=== PATIENT | female | born 1995 | race Caucasian/White ===

== ENCOUNTER 2019-08-19 15:13 | Emergency (ER) | payer SELFPAY ==
[2019-08-19 15:21] VITALS: BP 124/76; PULSE 69; RESP 18; TEMP 36.8; O2SAT 100
--- NOTE | 2019-08-19 15:38 | W.ED.GENAD ---
Discharge Plan Disposition Patient Disposition: HOME Condition: Stable Discharge Details Chief Complaint: GenMedical Clinical Impression: Jaundice Primary Care Provider: None,None ED Provider: Domenic Dunlap Home Meds and New Rx's Prescriptions: No Action No Known Home Meds RF: 0 Discharge Instructions Additional Instructions: You have elevated bilirbuin in your blood that has caused the yellowing of your skin. This is likely due primarily due to excessive alcohol use I have placed you on a follow up list to see a primary care provider if you develop high fevers, severe abdominal pain or persistent vomit, or feel more ill return to the emergency department Medical Decision Making 24 yo female comes in with years of yellow color of her conjunctiva that she feels has worsened the past few weeks and she is here today at request of her and other family per patient. Denies fevers, chills, abdominal pain. Used to use marijuana but hasn't in over a year and denies other drug use. Does drink a bottle of wine and over 5 shots of liquor most days per patient, none today. She does have some mild jaundice of her sclera bilaterally with no periorbital swelling and 20/20 vision, perrl, no discharge. Suspect has jaundice from her alcohol use, will check lfts and coag and send hepatitis panel. Denies any abdominal pain and has no tenderness now so do not feel emergent imaging indicated. labs show primarily unconjugated hyperbili and no evidence of hemolysis on labs and u/s shows no acute pathology. Could heamlatha Gary with some chronic liver damage from excessive alcohol use, no evidence of acute liver failure. will set her up with pcp and return precautions given Differential Diagnosis Differential Diagnosis: alcoholic hepatitis, jaundice, Imaging Data Radiologic Study: Attestation: I personally reviewed and interpreted this imaging study as follows: Imaging: X-Ray Radiologist's impression: IMPRESSION: No evidence of acute process. Lab Data Lab results reviewed: Yes I reviewed the patient's lab results. HPI General Mode of arrival: ambulatory. Date/Time Provider Initiated Documentation: 08/19/19 15:16. Limitations to Documentation: no limitations. Information obtained by: patient. History of Present Illness 24 year old F presents to the emergency department with the chief complaint of yellow conjunctiva, described as mild, and is localized to the eyes. Patient started experiencing this year(s) (3) No relieving factors improve symptom(s), No exacerbating factors reported . Patient notes no other symptoms.. Related Data Home Medications Medication Instructions Recorded Confirmed Unknown [No Known Home Meds] 05/01/13 08/19/19 Allergies Allergy/AdvReac Type Severity Reaction Status Date / Time cider vinegar AdvReac Other (See Unverified 08/19/19 15:35 Comment) orange AdvReac Other (See Unverified 08/19/19 15:35 Comment) General Stated Complaint: GenMedical MICHAEL: 3 Review of Systems Review of Systems ROS Unobtainable: All systems reviewed & are unremarkable except as noted in HPI and below Constitutional Constitutional: Denies chills, Denies fever(s) and Denies weakness ENT Ears, Nose, Mouth, and Throat: Denies change in voice Cardiovascular Cardiovascular: Denies chest pain and Denies dyspnea Respiratory Respiratory: Denies cough and Denies dyspnea Gastrointestinal Gastrointestinal: Denies abdominal pain, Denies nausea and Denies vomiting Musculoskeletal Musculoskeletal: Denies joint swelling Neurologic Neurologic: Denies weakness [facility] Social History Smoking/Tobacco Use Status: Never Alcohol Intake: current Alcohol Intake frequency: a few times a month Alcohol type: wine and hard liquor Drug use: Current Sobriety Exam Const General: no acute distress Orientation: alert HENMT Head: normal to inspection Ears: external ears normal General nose exam: external nose normal Mouth: moist mucous membranes Eyes Periorbital: periorbital findings normal Neck Neck: normal visual inspection Resp Effort & Inspection: normal respiratory effort and able to speak in complete sentences Cardio Rate: regular rate Skin General skin exam: no rashes or lesions noted Neuro General: alert and oriented x3 Extrem General: normal to inspection Psych Mental Status: mental status grossly normal Course Vital Signs Vital signs: Vital Signs Temperature 36.8 C 08/19/19 15:21 Pulse 69 08/19/19 15:21 Respiratory Rate 18 08/19/19 15:21 Blood Pressure 124/76 08/19/19 15:21 Pulse Oximetry 100 08/19/19 15:21 Temperature 36.8 C 08/19/19 15:21 Temperature Source Skin 08/19/19 15:21 Pulse 69 08/19/19 15:21 Respiratory Rate 18 08/19/19 15:21 Blood Pressure 124/76 08/19/19 15:21 Pulse Oximetry 100 10/07/19 15:21 Oxygen Delivery Method Room Air 08/19/19 15:21 Oxygen Flow Rate 0 08/19/19 15:21 Pain Level 0 08/19/19 15:21 Comment 08/19/19 15:21
--- NOTE | 2019-08-19 15:52 | DI.US_ITS ---
EXAM: US ABDOMEN CLINICAL HISTORY: jaundice. TECHNIQUE: Ultrasound performed using standard protocol. COMPARISON: No exams were available for comparison FINDINGS: Ultrasound was performed according to the usual protocol. Visualized liver parenchyma is normal in a ppearance. No evidence of cholelithiasis. No biliary dilatation. No gallbladder wall thickening. Negative sonographic Doshi's sign. Pancreas not ideally visualized but grossly unremarkable. Splee n unremarkable. Kidneys appear normal. IMPRESSION: No evidence of acute process.
[2019-08-19 16:14] LABS: Abs Immature Grans 0.03 k/cumm (0.0-0.09); Absolute Eosinophil Count 0.06 k/cumm (0.0-0.7); Absolute Lymphocyte Count 1.45 k/cumm (1.2-3.4); Absolute Monocyte Count 0.73 k/cumm (0.11-0.7); Basophils % 0.3; Eosinophils % 0.5; HCT 39.5 % (36.0-46.0); HGB 13.2 g/dL (12.0-15.5); Immature Grans % 0.3; Lymphocytes % 12.1; Mean Corp. HGB Concentration 33.4 g/dL (32.0-36.0); Mean Corpuscular Hemoglobin 32.4 pg (27.0-33.0); Mean Corpuscular Volume 96.8 fL (80-95); Mean Platelet Volume 10.7 fL (8.0-11.0); Monocytes % 6.1; Neutrophils % 80.7; Platelet Count 379 x1000/uL (130-400); RBC 4.08 m/cumm (4.00-5.20); RBC Distribution Width 13.2 % (11.7-14.6)
[2019-08-19 16:17] LABS: Absolute Basophil Count 0.04 k/cumm (0.0-0.2); Absolute Neutrophil Count 9.68 k/cumm (1.2-6.7)
[2019-08-19 16:30] LABS: INR 1.1 (0.9-1.1); PTT Activated 25.5 sec (21.0-31.4); Prothrombin Time 10.8 sec (9.3-11.0)
[2019-08-19 16:37] LABS: ALT 14 U/L (14-59); AST 14 U/L (15-37); Albumin 4.5 g/dL (3.4-5.0); Alkaline Phosphatase 69 U/L (46-116); Anion Gap 10.7 mmol/L (3-11); BUN 8 mg/dL (7-18); Bilirubin, Total 4.6 mg/dL (0.2-1.0); CO2 25.3 mmol/L (21.0-32.0); CREATININE 0.65 mg/dL (0.55-1.02); Calcium 8.9 mg/dL (8.5-10.1); Chloride 105 mmol/L (98-107); Glucose 87 mg/dL (70-100); Lipase 64 U/L (73-393); Potassium 3.4 mmol/L (3.5-5.1); Sodium 141 mmol/L (136-145); Total Protein 7.7 g/dL (6.4-8.2)
[2019-08-19 16:40] VITALS: BP 120/77; PULSE 75; TEMP 36.7; O2SAT 100
[2019-08-19 16:54] LABS: ETHANOL BLOOD < 3.0 mg/dL (<3)
[2019-08-20 10:40] LABS: Hepatitis A Antibody IgM Negative (NEGAT); Hepatitis B Core Antibody Negative (NEGAT); Hepatitis B surface Ag Negative (NEGAT); Hepatitis C Ab w Rflx HCV PCR Negative (NEGAT)
== END 2019-08-19 17:28 | disposition home or self-care (01) ==
PROVIDERS: Emergency Provider Emergency Medicine
DX: R17 Unspecified jaundice (principal); F10.99 Alcohol use, unspecified with unspecified alcohol-induced disorder
CPT/HCPCS: 36415; 80053; 81025; 83690; 86704; 86709; 86803; 87340; 99283; 76700; 80320; 82248; 85025; 85610; 85730

== ENCOUNTER 2019-08-24 23:07 | Emergency (ER) | payer SELFPAY ==
[2019-08-24 23:08] VITALS: BP 123/88; PULSE 67; RESP 17; TEMP 36.9; O2SAT 97
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
[2019-08-24] MEDS: Amoxicillin 875/Clav. 125 TAB PO (23:18)
== END 2019-08-24 23:43 | disposition home or self-care (01) ==
LOC: ER 23:54
PROVIDERS: Emergency Provider Emergency Medicine
DX: S91.121A Laceration with foreign body of right great toe without damage to nail, initial encounter (principal); Y00.XXXA Assault by blunt object, initial encounter
CPT/HCPCS: 99283